=== PATIENT | female | born 1965 | race African-American/Black ===

== ENCOUNTER 2019-06-01 08:44 | Outpatient (CLI) | payer OTHER | END 2019-06-01 17:00 | disposition home or self-care (01) | LOC: MAMO-SONO 08:44 | DX: N60.11 Diffuse cystic mastopathy of right breast (principal) ==

== ENCOUNTER 2019-06-01 09:54 | Outpatient (CLI) | payer OTHER | END 2019-06-01 15:00 | disposition home or self-care (01) | LOC: LAB 09:54 | DX: N39.0 Urinary tract infection, site not specified (principal); N30.00 Acute cystitis without hematuria ==

== ENCOUNTER → 2019-08-11 | Emergency (ER) | payer OTHER ==
[~2019-08-11] VITALS: Ht 170.2 cm; Wt 97.5 kg
[~2019-08-11] MED LIST: BUDESONIDE0.5 MG/2 M IH; XOPENEX0.63 MG/3 IH; ZYNCOF 20-400120 ML PO
== END | disposition home or self-care (01) ==
LOC: ER 02:02
DX: J40 Bronchitis, not specified as acute or chronic (principal)

== ENCOUNTER 2019-08-15 03:31 | Emergency (ER) | payer OTHER ==
[~2019-08-15] VITALS: Ht 165.1 cm; Wt 77.1 kg
== END 2019-08-15 06:10 | disposition home or self-care (01) ==
LOC: ER 03:31
DX: R00.2 Palpitations (principal)

== ENCOUNTER 2022-03-27 20:08 | Emergency (ER) | payer OTHER ==
[~2022-03-27] VITALS: Ht 165.1 cm; Wt 82.1 kg
[2022-03-27] MEDS ORDERED: SERTRALINE HCL100 MG PO (20:43)
== END 2022-03-27 22:13 | disposition home or self-care (01) ==
LOC: ER 20:08
DX: I10 Essential (primary) hypertension (principal)

== ENCOUNTER 2022-04-06 11:49 | Outpatient (CLI) | payer OTHER ==
[~2022-04-06 11:49] MED LIST changes: +SERTRALINE HCL100 MG PO
== END 2022-04-06 11:55 | disposition home or self-care (01) ==
LOC: MAMO-SONO 11:49
PROVIDERS: ATTEND Internal Medicine Cardiovascular Disease
DX: N63.11 Unspecified lump in the right breast, upper outer quadrant (principal)

== ENCOUNTER 2022-04-21 07:43 | Outpatient (CLI) | payer OTHER ==
[2022-04-30] MEDS ORDERED: HYZAAR 50-12.51 EACH PO (08:31)
== END 2022-04-21 09:29 | disposition home or self-care (01) ==
LOC: NUCLEAR 07:43
PROVIDERS: ATTEND Internal Medicine Cardiovascular Disease
DX: M81.0 Age-related osteoporosis without current pathological fracture (principal); K55.9 Vascular disorder of intestine, unspecified

== ENCOUNTER 2022-04-23 11:43 | Outpatient (CLI) | payer OTHER ==
[2022-04-30] MEDS ORDERED: HYZAAR 50-12.51 EACH PO (08:31)
== END 2022-04-23 11:47 | disposition home or self-care (01) ==
LOC: SONOGRAMA 11:43
PROVIDERS: ATTEND Pathology Anatomic Pathology & Clinical Pathology
DX: E04.2 Nontoxic multinodular goiter (principal)

== ENCOUNTER 2022-05-04 05:35 | Day surgery (SDC) | payer OTHER ==
[~2022-05-04 05:35] MED LIST changes: +HYZAAR 50-12.51 EACH PO
[2022-05-04] MEDS ORDERED: ULTRACET PO (09:22)
[2022-05-04] MEDS ORDERED: DUI500 PO (09:22)
== END 2022-05-04 12:05 | disposition home or self-care (01) ==
LOC: CIR.AMB 05:35
PROVIDERS: ATTEND Orthopaedic Surgery Sports Medicine
DX: S83.241A Other tear of medial meniscus, current injury, right knee, initial encounter (principal); M17.11 Unilateral primary osteoarthritis, right knee; Z86.16 Personal history of COVID-19